=== PATIENT | male | born 1935 | race Caucasian/White ===

== ENCOUNTER 2019-03-04 08:53 | Emergency (ER) | payer MEDICARE ==
[~2019-03-04] VITALS: Ht 185.4 cm; Wt 70.3 kg
--- OUTSIDE RECORDS SUMMARY | 2019-03-04 09:00 | XMS REPORT | Clinical Summary ---
Author Author Salvador Uatsdin Organization [employer] [facility] Address Unknown Phone Unavailable Care Team Providers Care Wholesale Buyer Name Role Phone Roberto Guzman MD PCP Allergies No Known Allergies Medications End Date Status Medication Sig Dispensed Refills Start Date Active dicyclomine (BENTYL) 10 Take 10 mg by 0 MG capsule mouth 2 (two) times a day. Active levothyroxine (SYNTHROID, Take 112 mcg 0 LEVOXYL) 112 mcg tablet by mouth every morning. Active pravastatin (PRAVACHOL) Take 40 mg by 0 40 MG tablet mouth every morning. Active lisinopril Take 5 mg by 0 (PRINIVIL,ZESTRIL) 5 mg mouth daily. tablet Active atenolol (TENORMIN) 25 MG Take 25 mg by 0 tablet mouth every morning. Active ranitidine (ZANTAC) 150 Take 150 mg 0 MG tablet by mouth every morning. Active omeprazole (PriLOSEC) 20 Take 20 mg by 0 MG capsule mouth 2 (two) times a day. Active digOXIN (LANOXIN) 125 mcg Take 125 mcg 0 tablet by mouth every morning. Active furosemide (LASIX) 40 mg Take 40 mg by 0 tablet mouth daily. Active potassium chloride Take 10 mEq 0 (K-DUR,KLOR-CON) 10 MEQ by mouth CR tablet daily. Active warfarin (COUMADIN) 5 MG Take 5 mg by 0 tablet mouth once a week. 5x week.(Tue-Tue -Ugqg-Kiv-Qkb ) Active warfarin (COUMADIN) 2.5 Take 2.5 mg 0 MG tablet by mouth 2 (two) times a week. TUE-TUE Active vit Take 1 tablet 0 C/E/Zn/coppr/lutein/zeaxa by mouth 2 n (PRESERVISION AREDS-2 (two) times a ORAL) day. Active Problems Problem Noted Date Non-intractable vomiting with nausea 08/16/2018 Encounters Care Team Description Date Type Specialty Odilon Pacheco, Dung Smith MD Non-intractable vomiting with nausea, unspecified vomiting type (Primary Dx); Dehydration; Renal insufficiency; Hypokalemia; Coagulopathy (HCC) 08/16/2018 Emergency General Internal Medicine - 08/18/2018 after 03/03/2018 Social History Date Tobacco Use Types Packs/Day Years Used Never Smoker Smokeless Tobacco: Never Used Alcohol Use Drinks/Week oz/Week Comments No Sex Assigned at Date Recorded Not on file Industry Job Start Date Occupation Not on file Not on file Not on file Travel End Travel History Travel Start No recent travel history available. Last Filed Vital Signs Time Taken Vital Sign Reading 08/18/2018 10:51 AM CHILD AND YOUTH PROGRAM ASSISTANT Blood Pressure 121/68 08/18/2018 10:51 AM CHILD AND YOUTH PROGRAM ASSISTANT Pulse 65 08/18/2018 10:51 AM CHILD AND YOUTH PROGRAM ASSISTANT Temperature 35.8 C (96.5 F) 08/18/2018 10:51 AM CHILD AND YOUTH PROGRAM ASSISTANT Respiratory Rate 17 08/18/2018 10:51 AM CHILD AND YOUTH PROGRAM ASSISTANT Oxygen Saturation 93% - Inhaled Oxygen - Concentration 08/16/2018 5:53 AM CHILD AND YOUTH PROGRAM ASSISTANT Weight 58.9 kg (129 lb 12.8 oz) 08/16/2018 5:53 AM CHILD AND YOUTH PROGRAM ASSISTANT Height 185.4 cm (6' 1") 08/16/2018 5:53 AM CHILD AND YOUTH PROGRAM ASSISTANT Body Mass Index 17.13 Plan of Treatment Health Maintenance Due Date Last Done Comments SHINGLES VACCINES (#1) 01/16/1984 65+ PNEUMOCOCCAL VACCINE 1999 (1 of 2 - PCV13) PNEUMOCOCCAL 1999 POLYSACCHARIDE VACCINE AGE 65 AND OVER INFLUENZA VACCINE 05/10/2019 Procedures Comments Procedure Name Priority Date/Time Associated Diagnosis ESTIMATED GFR Routine 08/18/2018 4:46 AM CHILD AND YOUTH PROGRAM ASSISTANT COMPREHENSIVE METABOLIC Routine 08/18/2018 PANEL 4:46 AM CHILD AND YOUTH PROGRAM ASSISTANT HC COMPLETE BLD COUNT Routine 08/18/2018 W/AUTO DIFF 4:46 AM CHILD AND YOUTH PROGRAM ASSISTANT ESTIMATED GFR Routine 08/17/2018 5:59 AM CHILD AND YOUTH PROGRAM ASSISTANT COMPREHENSIVE METABOLIC Routine 08/17/2018 PANEL 5:59 AM CHILD AND YOUTH PROGRAM ASSISTANT HC COMPLETE BLD COUNT Routine 08/17/2018 W/AUTO DIFF 5:59 AM CHILD AND YOUTH PROGRAM ASSISTANT TROPONIN Timed 08/16/2018 3:35 PM CHILD AND YOUTH PROGRAM ASSISTANT TROPONIN Timed 08/16/2018 11:36 AM CHILD AND YOUTH PROGRAM ASSISTANT ECG 12-LEAD STAT 08/16/2018 6:53 AM CHILD AND [employer] ASSISTANT CT RENAL STONE PROTOCOL STAT 08/16/2018 6:49 AM CHILD AND YOUTH PROGRAM ASSISTANT URINE CULTURE Routine 08/16/2018 6:39 AM CHILD AND YOUTH PROGRAM ASSISTANT URINALYSIS SCREEN AND Routine 08/16/2018 MICROSCOPY, WITH REFLEX 6:27 AM CHILD AND YOUTH PROGRAM ASSISTANT TO CULTURE ECG ED PRELIMINARY Routine 08/16/2018 INTERPRETATION 6:15 AM CHILD AND YOUTH PROGRAM ASSISTANT PARTIAL THROMBOPLASTIN STAT 08/16/2018 TIME (PTT) 6:05 AM CHILD AND YOUTH PROGRAM ASSISTANT PROTHROMBIN TIME WITH INR STAT 08/16/2018 6:05 AM CHILD AND YOUTH PROGRAM ASSISTANT CREATINE KINASE, TOTAL STAT 08/16/2018 (CPK) 6:05 AM CHILD AND YOUTH PROGRAM ASSISTANT TROPONIN STAT 08/16/2018 6:05 AM CHILD AND YOUTH PROGRAM ASSISTANT LIPASE LEVEL STAT 08/16/2018 6:05 AM CHILD AND YOUTH PROGRAM ASSISTANT DIGOXIN LEVEL STAT 08/16/2018 6:05 AM CHILD AND YOUTH PROGRAM ASSISTANT LIPASE LEVEL STAT 08/16/2018 6:05 AM CHILD AND YOUTH PROGRAM ASSISTANT ESTIMATED GFR STAT 08/16/2018 6:05 AM CHILD AND YOUTH PROGRAM ASSISTANT COMPREHENSIVE METABOLIC STAT 08/16/2018 PANEL 6:05 AM CHILD AND YOUTH PROGRAM ASSISTANT HC COMPLETE BLD COUNT STAT 08/16/2018 W/AUTO DIFF 6:05 AM CHILD AND YOUTH PROGRAM ASSISTANT after 03/03/2018 Results * Estimated GFR (08/18/2018 4:46 AM CHILD AND YOUTH PROGRAM ASSISTANT) Only the most recent of 3 results within the time period is included. Estimated GFR 61 mL/min/1.73 m2 [facility] Comment: OF PATHOLOGY CatergoryUnitsInte AND GENOMIC rpretation MEDICINE G1 >=90 Normal or high G2 60-89Mildly decreased [id number] Mildly to moderately decreased [id number] Moderately to severely decreased G4 15-29Severely decreased G5 <15Kidney failure The eGFR was calculated using the Chronic Kidney Disease Epidemiology Collaboration (CKD-EPI) equation. Interpretation is based on recommendations of the National Kidney Foundation-Kidney Disease Outcomes Quality Initiative (NKF-KDOQI) published in 2014. Specimen Plasma specimen Performing Organization Address City/State/Zipcode Phone Number [facility] OF [address] [place] [address] PATHOLOGY AND [facility] * CBC with platelet and differential (08/18/2018 4:46 AM CHILD AND YOUTH PROGRAM ASSISTANT) Only the most recent of 3 results within the time period is included. WBC 5.7 4.2 - 11.0 k/uL [facility] OF PATHOLOGY AND GENOMIC MEDICINE RBC 3.99 (L) 4.04 - 5.86 m/uL [facility] PATHOLOGY AND GENOMIC MEDICINE HGB 12.5 (L) 13.0 - 17.3 g/dL [facility] PATHOLOGY AND GENOMIC MEDICINE HCT 37.4 34.0 - 45.0 % [facility] OF PATHOLOGY AND GENOMIC MEDICINE MCV 93.7 80.0 - 98.0 fL [facility] OF PATHOLOGY AND GENOMIC MEDICINE MCH 31.3 27.0 - 34.0 pg [facility] OF PATHOLOGY AND GENOMIC MEDICINE MCHC 33.4 31.5 - 36.5 g/dL [facility] OF PATHOLOGY AND GENOMIC MEDICINE RDW - SD 42.7 37.0 - 51.0 fL [facility] OF PATHOLOGY AND GENOMIC MEDICINE MPV 11.5 (H) 7.4 - 10.4 fL [facility] OF PATHOLOGY AND GENOMIC MEDICINE Platelet count 127 (L) 150 - 400 k/uL [facility] OF PATHOLOGY AND GENOMIC MEDICINE Nucleated RBC 0.00 /100 WBC [facility] OF PATHOLOGY AND GENOMIC MEDICINE Neutrophils 67.1 (H) 36.0 - 66.0 % [facility] OF PATHOLOGY AND GENOMIC MEDICINE Lymphocytes 13.3 (L) 24.0 - 44.0 % [facility] OF PATHOLOGY AND GENOMIC MEDICINE Monocytes 18.9 (H) 0.0 - 6.0 % [facility] OF PATHOLOGY AND GENOMIC MEDICINE Eosinophils 0.0 0.0 - 6.0 % [facility] OF PATHOLOGY AND GENOMIC MEDICINE Basophils 0.2 0.0 - 1.2 % [facility] OF PATHOLOGY AND GENOMIC MEDICINE Immature 0.5 0.0 - 1.0 % [facility] granulocytes OF PATHOLOGY AND GENOMIC MEDICINE Specimen Blood Performing Organization Address City/[facility]/Zipcode Phone Number [address] [place] [address] PATHOLOGY AND GENOMIC MEDICINE * Comprehensive metabolic panel (08/18/2018 4:46 AM CHILD AND YOUTH PROGRAM ASSISTANT) Only the most recent of 3 results within the time period is included. Sodium 134 (L) 135 - 150 mEq/L [facility] OF PATHOLOGY AND GENOMIC MEDICINE Potassium 3.3 (L) 3.5 - 5.0 mEq/L [facility] OF PATHOLOGY AND GENOMIC MEDICINE Chloride 91 (L) 98 - 112 mEq/L [facility] OF PATHOLOGY AND GENOMIC MEDICINE CO2 37 (H) 24 - 31 mmol/L [facility] OF PATHOLOGY AND GENOMIC MEDICINE Anion gap 6@ANIO (L) 7 - 15 mEq/L [facility] OF PATHOLOGY AND GENOMIC MEDICINE BUN 25 (H) 7 - 18 mg/dL [facility] OF PATHOLOGY AND GENOMIC MEDICINE Creatinine 1.10 0.70 - 1.20 mg/dL [facility] OF PATHOLOGY AND GENOMIC MEDICINE Glucose 118 (H) 65 - 100 mg/dL [facility] OF PATHOLOGY AND GENOMIC MEDICINE Calcium 9.2 8.8 - 10.2 mg/dL [facility] OF PATHOLOGY AND GENOMIC MEDICINE Protein 5.5 (L) 6.3 - 8.3 g/dL [facility] OF PATHOLOGY AND GENOMIC MEDICINE Albumin 2.4 (L) 3.5 - 5.0 g/dL [facility] OF PATHOLOGY AND GENOMIC MEDICINE A/G ratio 0.8 0.7 - 3.8 [facility] OF PATHOLOGY AND GENOMIC MEDICINE Alkaline 74 0 - 129 U/L [facility] phosphatase OF PATHOLOGY AND GENOMIC MEDICINE AST 46 10 - 50 U/L [facility] OF PATHOLOGY AND GENOMIC MEDICINE ALT 26 5 - 50 U/L [facility] OF PATHOLOGY AND GENOMIC MEDICINE Total bilirubin 1.2 0.2 - 1.2 mg/dL [facility] OF PATHOLOGY AND GENOMIC MEDICINE Specimen Plasma specimen Performing Organization Address City/State/Zipcode Phone Number [address] [place] [id number] PATHOLOGY AND GENOMIC MEDICINE * Troponin (08/16/2018 3:35 PM CHILD AND YOUTH PROGRAM ASSISTANT) Only the most recent of 3 results within the time period is included. Troponin <0.30 0.00 - 0.30 ng/mL [facility] Comment: OF PATHOLOGY 0.11 - 1.49 AND GENOMIC ng/mlMay MEDICINE indicate increased risk of acute coronary syndrome. >=1.5 ng/ml Consistent with acute myocardial infarction. The diagnostic value of a single normal or non-diagnostic result is questionable.Serial samples at 2-6 hour intervals are required to rule out acute myocardial injury. Specimen Plasma specimen Performing Organization Address City/[facility]/Zipcode Phone Number [facility] OF [address] [place] [address] PATHOLOGY AND GENOMIC MEDICINE * ECG 12 lead (08/16/2018 6:53 AM CHILD AND YOUTH PROGRAM ASSISTANT) Ventricular 68 [facility] rate Atrial rate 68 [facility] [place] interval 134 [facility] QRSD interval 148 [facility] QT interval 418 [facility] QTC interval 444 [facility] P axis 1 18 [facility] QRS axis 1 -65 [facility] T wave axis 252 [facility] EKG impression Sinus rhythm with premature [facility] supraventricular complexes with occasional premature ventricular complexes-Left axis deviation-Nonspecific intraventricular block-Abnormal ECG-No previous ECGs available- Specimen Performing Organization Address City/[facility] Cent[facility]ode Phone Number [facility] MUSE [address] [place] [address] * CT Renal Stone Protocol (08/16/2018 6:49 AM CHILD AND YOUTH PROGRAM ASSISTANT) Specimen Narrative Performed At EXAMINATION:CT RENAL STONE PROTOCOL RADIANT CLINICAL HISTORY:right flank pain TECHNIQUE: Multiple axial images of the abdomen and pelvis were obtained without intravenous administration of iodinated contrast. Sagittal and coronal computerized reformatted images were also obtained. The lack of intravenous contrast reduces the sensitivity of detecting solid organ disease. CT imaging was performed with iterative reconstruction techniques and/or automated exposure control to reduce radiation dose. COMPARISON:None. FINDINGS: 1.The right kidney is absent. The left kidney demonstrates moderate hydronephrosis without obstructing urinary calculus. There is questionable subtle urothelial thickening and left posterolateral bladder at the level of the ureteral orifice, the not definite (series 2 image 147, sagittal image 44). 2.A left inguinal hernia contains a loop of unobstructed small bowel. There is no bowel obstruction or acute inflammation. Stomach is unremarkable. The appendix is not definitely seen, but there are no inflammatory changes near the cecum. 3.The unenhanced liver, spleen, pancreas, and adrenals are within normal limits. 4.There is a subcentimeter gallstone in the gallbladder. No pericholecystic edema to suggest acute cholecystitis is seen. 5.There is a fat-containing posterolateral left lumbar hernia. 6.There is no acute or aggressive skeletal finding. IMPRESSION: 1.No clear explanation for right flank pain. 2.Moderate left hydronephrosis. Absent right kidney. Questionable mild urothelial thickening in the left posterolateral urinary bladder near the ureteral orifice.Consider contrast-enhanced CT, urogram protocol, or cystoscopy. 3.Left inguinal hernia containing unobstructed small bowel. 4.Cholelithiasis without evidence of acute cholecystitis. [facility]-[id number] Procedure Note Hm Interface, Radiology Results Incoming - 08/16/2018 7:10 AM CHILD AND YOUTH PROGRAM ASSISTANT EXAMINATION: CT RENAL STONE PROTOCOL CLINICAL HISTORY: right flank pain TECHNIQUE: Multiple axial images of the abdomen and pelvis were obtained without intravenous administration of iodinated contrast. Sagittal and coronal computerized reformatted images were also obtained. The lack of intravenous contrast reduces the sensitivity of detecting solid organ disease. CT imaging was performed with iterative reconstruction techniques and/or automated exposure control to reduce radiation dose. COMPARISON: None. FINDINGS: 1. The right kidney is absent. The left kidney demonstrates moderate hydronephrosis without obstructing urinary calculus. There is questionable subtle urothelial thickening and left posterolateral bladder at the level of the ureteral orifice, the not definite (series 2 image 147, sagittal image 44). 2. A left inguinal hernia contains a loop of unobstructed small bowel. There is no bowel obstruction or acute inflammation. Stomach is unremarkable. The appendix is not definitely seen, but there are no inflammatory changes near the cecum. 3. The unenhanced liver, spleen, pancreas, and adrenals are within normal limits. 4. There is a subcentimeter gallstone in the gallbladder. No pericholecystic edema to suggest acute cholecystitis is seen. 5. There is a fat-containing posterolateral left lumbar hernia. 6. There is no acute or aggressive skeletal finding. IMPRESSION: 1. No clear explanation for right flank pain. 2. Moderate left hydronephrosis. Absent right kidney. Questionable mild urothelial thickening in the left posterolateral urinary bladder near the ureteral orifice.Consider contrast-enhanced CT, urogram protocol, or cystoscopy. 3. Left inguinal hernia containing unobstructed small bowel. 4. Cholelithiasis without evidence of acute cholecystitis. [facility]-[id number] Performing Organization Address City/[facility]/Zipcode Phone Number [facility] [address] [place] [address] * Urine culture (08/16/2018 6:39 AM CHILD AND YOUTH PROGRAM ASSISTANT) Urine culture SEE COMMENTComment: [facility] Bacteriuria screen negative. OF PATHOLOGY AND GENOMIC MEDICINE Specimen Performing Organization Address [facility] Centercode Phone Number [facility] OF [address] [place] [address] PATHOLOGY AND GENOMIC MEDICINE * Urinalysis screen and microscopy, with reflex to culture (08/16/2018 6:27 AM CHILD AND YOUTH PROGRAM ASSISTANT) Specimen site Clean catch [facility] OF PATHOLOGY AND GENOMIC MEDICINE Color, UA Yellow [facility] OF PATHOLOGY AND GENOMIC MEDICINE Appearance, UA Clear [facility] OF PATHOLOGY AND GENOMIC MEDICINE Specific 1.009 1.001 - 1.035 [facility] gravity, OF PATHOLOGY AND GENOMIC MEDICINE pH, UA 6.0 5.0 - 8.5 [facility] OF PATHOLOGY AND GENOMIC MEDICINE Protein, UA Negative Negative [facility] OF PATHOLOGY AND GENOMIC MEDICINE Glucose, UA Negative Negative [facility] OF PATHOLOGY AND GENOMIC MEDICINE Ketones, UA Negative Negative [facility] OF PATHOLOGY AND GENOMIC MEDICINE Bilirubin, UA Negative Negative [facility] OF PATHOLOGY AND GENOMIC MEDICINE Blood, UA Negative Negative [facility] OF PATHOLOGY AND GENOMIC MEDICINE Nitrite, UA Negative Negative [facility] OF PATHOLOGY AND GENOMIC MEDICINE Urobilinogen, Negative <2.0 [facility] UA OF PATHOLOGY AND GENOMIC MEDICINE Leukocyte Negative Negative [facility] esterase, UA OF PATHOLOGY AND GENOMIC MEDICINE WBC, UA 2 0 - 1 /HPF [facility] OF PATHOLOGY AND GENOMIC MEDICINE RBC, UA 1 0 - 5 /HPF [facility] OF PATHOLOGY AND GENOMIC MEDICINE Bacteria, UA None seen None seen [facility] OF PATHOLOGY AND GENOMIC MEDICINE Yeast, UA None seen [facility] OF PATHOLOGY AND GENOMIC MEDICINE Yeast with None seen [facility] pseudohyphae, OF PATHOLOGY UA AND GENOMIC MEDICINE Specimen Urine Performing Organization Address City/[facility] Centercode Phone Number [facility] OF [address] [place] [address] PATHOLOGY AND GENOMIC MEDICINE * ECG ED Preliminary Interpretation - NOT AN ORDER (08/16/2018 6:15 AM CHILD AND YOUTH PROGRAM ASSISTANT) Narrative Performed At Odilon Pacheco DO 08/17/20185:39 PM ECG ED Preliminary Interpretation - Not an Order Performed by: ODILON PACHECO Authorized by: ODILON PACHECO ECG reviewed by ED Physician in the absence of a rock climbing instructor: yes Interpretation: Interpretation: non-specific Quality: Tracing quality:Limited by artifact (Motion artifact) Rate: ECG rate:68 ECG rate assessment: normal Rhythm: Rhythm: sinus rhythm Ectopy: Ectopy: PVCs QRS: QRS axis:Normal QRS intervals:Normal ST segments: ST segments:Normal T waves: T waves: normal * Partial thromboplastin time, activated (08/16/2018 6:05 AM CHILD AND YOUTH PROGRAM ASSISTANT) PTT 49.0 (H) 23.0 - 36.0 sec [facility] Comment: OF PATHOLOGY PTT therapeutic range for AND GENOMIC unfractionated heparin is MEDICINE 61.0-112.0 seconds which corresponds to Anti-Xa 0.3-0.7 U/ml. Note:Change in Panic Value The PTT Panic Value is changing from 110 sec. to 100 sec. due to new instrumentation and reagents. Correlation studies have been performed to validate this result. Specimen Blood Performing Organization Address [facility] Phone Number [facility] OF [address] [place] [address] PATHOLOGY AND GENOMIC MEDICINE * Prothrombin time with INR (08/16/2018 6:05 AM CHILD AND YOUTH PROGRAM ASSISTANT) Prothrombin 40.0 (H) 11.5 - 14.5 sec [facility] time OF PATHOLOGY AND GENOMIC MEDICINE INR 4.21 (HH) [facility] Comment: OF PATHOLOGY For patients on anticoagulant AND GENOMIC therapy, reference ranges MEDICINE below: Indication: INR Value Treatment of Venous Thrombosis, 2.0-3.0 pulmonary emboli, or prophylaxis of a venous thrombosis, or systemic emboli. High dose, high risk patients 3.0-4.5 with mechanical valves. NOTE:INR values over 3.0 are sometimes associated with gastrointestinal hemorrhage, especially values over 4.0. Specimen Blood Performing Organization Address [facility]/Zipcode Phone Number [facility] OF [address] [place] [address] PATHOLOGY AND GENOMIC MEDICINE * Lipase level (08/16/2018 6:05 AM CHILD AND YOUTH PROGRAM ASSISTANT) Only the most recent of 2 results within the time period is included. Lipase 21 13 - 60 U/L [facility] OF PATHOLOGY AND GENOMIC MEDICINE Specimen Plasma specimen Performing Organization Address City/[facility] Centercode Phone Number [facility] [place] [place] [address] [place] [address] PATHOLOGY AND GENOMIC MEDICINE * Creatine kinase, total (CPK) (08/16/2018 6:05 AM CHILD AND YOUTH PROGRAM ASSISTANT) Creatine kinase 261 39 - 308 U/L [facility] OF PATHOLOGY AND GENOMIC MEDICINE Specimen Plasma specimen Performing Organization Address [facility] Centercofl Phone Number [facility] OF [address] [place] [address] PATHOLOGY AND GENOMIC MEDICINE * Digoxin level (08/16/2018 6:05 AM CHILD AND YOUTH PROGRAM ASSISTANT) Digoxin 1.9 0.8 - 2.0 ng/mL [facility] Comment: OF PATHOLOGY For valid Digoxin results, at AND GENOMIC least 6 hours should elapse MEDICINE between time of last dose and collection of blood. Otherwise, result may be false high. Therapeutic Range: 0.8 - 2.0 ng/mL Specimen Blood Performing Organization Address City/[facility] Centercofl Phone Number [facility] OF [address] [place], [place] [id number] PATHOLOGY AND GENOMIC MEDICINE after 03/03/2018 Insurance Type Payer Benefit Subscriber ID Effective Phone Address Plan / Dates Group HMO [employer] C[employer] xxxxxxxxxxx [id number] [employer] resent NG O MCR ADV Advance Directives Patient has advance care planning documents on file. For more information, kayce ha contact: Modesto Zafar [address] [place] [address]
[2019-03-04] MEDS ORDERED: ONDANSETRON HCL INJ 2MG/ML 2ML 2 MG/ML VIAL ONE (09:29)
[2019-03-04] MEDS ORDERED: MORPHINE SULFATE INJ 4 MG/ML INJ 1ML ONE ×2 (09:30→10:15)
[2019-03-04] MEDS ORDERED: HYDROCODONE/APAP 5MG-325MG TAB PO ONE (09:30)
[2019-03-04] MEDS ORDERED: MORPHINE SULFATE 2 MG/ML SYR 1ML IV STA (09:50)
[2019-03-04] MEDS ORDERED: ONDANSETRON HCL INJ 2MG/ML 2ML 2 MG/ML VIAL IV STA (09:50)
[2019-03-04] MEDS ORDERED: MORPHINE SULFATE INJ 4 MG/ML INJ 1ML IV STA (09:53)
[2019-03-04] MEDS ORDERED: MORPHINE SULFATE INJ 4 MG/ML INJ 1ML IV ONE ×2 (10:00→10:30)
[2019-03-04] MEDS ORDERED: ONDANSETRON HCL INJ 2MG/ML 2ML 2 MG/ML VIAL IV ONE (10:00)
[2019-03-04] MEDS ORDERED: MORPHINE SULFATE 5 MG/ML VIAL IV ONE (10:15)
--- NOTE | 2019-03-04 10:17 | Diagnostic Imaging Report ---
WRIST COMPLETE RIGHT - 3 views HISTORY: Pain. Fall. COMPARISON: None available. FINDINGS: Bones: Comminuted fracture of the distal radius with possible intra-articular involvement. Joints: Moderate to severe degenerative changes at the first carpometacarpal joint. Soft tissues: Diffuse soft tissue swelling of the right wrist. IMPRESSION: Comminuted fracture of the distal radius with possible intra-articular involvement. Signed by: Dr. Robi Levy M.D. on 03/04/2019 10:14 AM
--- NOTE | 2019-03-04 10:20 | Diagnostic Imaging Report ---
SHOULDER RIGHT COMPLETE - 3 views HISTORY: Pain. Fall COMPARISON: None available. FINDINGS: Suboptimal views. Bones: Age-indeterminate lateral right fifth, sixth, seventh, and eighth rib fracture deformity. Osseous alignment is within normal limits. Joints: There appears to be a grade 3 AC joint separation with superior subluxation of the clavicle with respect to the acromion. On scapular Y view there is a suggestion of anterior dislocation. However, on the suboptimal AP views of the shoulder appears to be intact. Soft tissues: The soft tissues appear unremarkable. IMPRESSION: 1. Suboptimal views. 2. Age-indeterminate lateral right fifth, sixth, seventh, and eighth rib fracture deformity. 3. There appears to be a grade 3 AC joint separation with superior subluxation of the clavicle with respect to the acromion. 4. On scapular Y view there is a suggestion of anterior dislocation. However, on the suboptimal AP views of the shoulder appears to be intact. Signed by: Dr. Robi Levy M.D. on 03/04/2019 10:17 AM
--- NOTE | 2019-03-04 10:22 | Diagnostic Imaging Report ---
EXAMINATION: CHEST 2 VIEWS INDICATION: ^FELL 4 FEET ONTO RIGHT SIDE COMPARISON: None FINDINGS: PA and lateral views TUBES and LINES: None. LUNGS: Lungs are hyper inflated. Increased airspace opacity in the right hemithorax. Left basilar atelectasis. There is mild prominence of the central pulmonary vasculature, consistent with pulmonary venous congestion. PLEURA: No pleural effusion or pneumothorax. HEART AND MEDIASTINUM: Cardiac size is moderately enlarged. BONES AND SOFT TISSUES: Right rib deformities, which are better seen on shoulder views. Soft tissues are unremarkable. UPPER ABDOMEN: No free air under the diaphragm. IMPRESSION: 1. Moderate cardiomegaly with central pulmonary venous congestion. 2. Airspace opacities in the right lung, which may represent pulmonary contusions. 3. Right rib deformities, which were better seen on shoulder x-rays. Signed by: Dr. Robi Levy M.D. on 03/04/2019 10:18 AM
[2019-03-04 10:33] LABS: INR 2.32; PROTHROMBIN TIME 26.2 seconds (11.9-14.5)
--- NOTE | 2019-03-04 10:56 | NUR ---
PT ASST TO WHEELCHAIR. ABLE TO STAND AND BEAR WT. NO DIZZINESS. OFFERED PT TO POV, FAMILY STATES THEY WILL TAKE PT TO VEHICLE. FAMILY X 3.
== END 2019-03-04 10:58 | disposition home or self-care (01) ==
LOC: ER 08:57
DX: S52.571A Other intraarticular fracture of lower end of right radius, initial encounter for closed fracture (principal); S52.601A Unspecified fracture of lower end of right ulna, initial encounter for closed fracture; W01.0XXA Fall on same level from slipping, tripping and stumbling without subsequent striking against object, initial encounter; Y93.89 Activity, other specified; Y92.019 Unspecified place in single-family (private) house as the place of occurrence of the external cause; Z91.81 History of falling; E03.9 Hypothyroidism, unspecified; E78.5 Hyperlipidemia, unspecified; I48.91 Unspecified atrial fibrillation; Z79.01 Long term (current) use of anticoagulants; I11.0 Hypertensive heart disease with heart failure; I50.22 Chronic systolic (congestive) heart failure
CPT/HCPCS: 36415; 71046; 73030; 73110; 85610; 99284; J2270; J2405